=== PATIENT | female | born 1995 | race Caucasian/White ===

== ENCOUNTER 2018-04-16 20:26 | Inpatient (IN) | END 2018-04-18 16:35 | disposition home or self-care (01) | DRG 853 ==

== ENCOUNTER 2018-05-04 20:20 | Inpatient (IN) | END 2018-05-06 15:05 | disposition home or self-care (01) | DRG 812 ==

== ENCOUNTER 2018-05-31 15:07 | Emergency (ER) | END 2018-05-31 19:44 | disposition home or self-care (01) ==